=== PATIENT | female | born 1980 | race Caucasian/White ===

== ENCOUNTER 2016-09-11 17:59 | Emergency (ER) | payer BC | END 2016-09-11 18:17 | disposition left against medical advice (07) | LOC: CED 17:59 | DX: Z53.21 Procedure and treatment not carried out due to patient leaving prior to being seen by health care provider (principal) ==

== ENCOUNTER 2017-01-04 08:37 | Emergency (ER) | payer BC ==
[2017-01-04 08:52] VITALS: RESP 18; TEMP 98.4; O2SAT 97
[2017-01-04] MEDS ORDERED: diphenhydrAMINE 25 MG CAP PO ONE (09:28)
[2017-01-04] MEDS ORDERED: FAMOTIDINE 20 MG TAB PO ONE (09:28)
[2017-01-04] MEDS ORDERED: predniSONE 20 MG TAB PO ONE (09:28)
--- NOTE | 2017-01-04 09:36 | EDPHY ---
H & P HPI/ROS: CHIEF COMPLAINT: Rash HISTORY OF PRESENT ILLNESS: This 36-year-old female presents to the emergency department today with complaints of a rash on her arms, legs and trunk over the last 2 weeks. She has seen her primary care provider and they told her that it was stress related. They did not give her any medications. The rash has fluctuated but it has not gone away. She cannot think of any causative factors for the rash. She denies new detergents, body products, medications, or foods. No one else in the home has a similar rash. There has never been open lesions and the rash is not significantly pruritic. She has not had throat swelling, difficulty swallowing, difficulty breathing, dizziness, chest pain, or abdominal pain. She has not had a rash like this before. REVIEW OF SYSTEMS: Constitutional: No fever, no chills. Eyes: No discharge. ENT: No sore throat. Cardiovascular: No chest pain, no palpitations. Respiratory: No cough, no shortness of breath. Gastrointestinal: No abdominal pain, no vomiting. Genitourinary: No hematuria. Musculoskeletal: No back pain. Skin: See HPI. Neurological: No headache. Past Medical/Surgical History: PMH: Denied PSH: Denied FH: Anxiety, depression Social History: The patient states she smoked half pack of cigarettes per day. She has occasional alcohol. She denies marijuana use. Smoking Status: Current every day smoker Physical Exam: General Appearance: Alert, anxious. Eyes: Pupils equal and round no pallor or injection. ENT, Mouth: Mucous membranes are moist. No erythema, exudate, swelling. Uvula midline. Respiratory: There are no retractions, lungs are clear to auscultation. No rales, rhonchi or wheezing. Cardiovascular: Regular rate and rhythm. No murmurs, gallops or rubs. Gastrointestinal: Abdomen is soft and nontender, no masses, bowel sounds normal. Neurological: Awake and alert, sensory and motor exams grossly normal. Skin: Warm and dry. There is a diffuse, pale pink macular rash on her lower extremities, upper extremities, and posterior trunk. No vesicles, bullae, plaques, petechiae or nodules. No open wounds. No evidence of excoriations. The rash blanches in some areas but not in others. Musculoskeletal: Neck is supple nontender. Extremities are symmetrical, full range of motion. Psychiatric: Patient is oriented X 3, there is no agitation. DIFFERENTIAL DIAGNOSIS: After history and physical exam differential diagnosis was considered for allergic reaction, viral syndrome, dermatitis; no evidence of meningococcemia, vasculitis or erythema multiforme Constitutional: Initial Vital Signs Temperature (C) 98.4 F 01/04/17 08:49 Heart Rate 88 01/04/17 08:49 Respiratory Rate 18 01/04/17 08:49 Blood Pressure 116/64 01/04/17 08:49 O2 Sat (%) 97 01/04/17 08:49 O2 Delivery Mode Room Air Allergies/Adverse Reactions: amoxicillin [Amoxicillin] Allergy (Unknown, Verified 01/04/17 08:49) Penicillins Allergy (Verified 01/04/17 08:49) Home Medications: Medication Instructions Recorded Bcp 05/08/15 Famotidine [Pepcid] 20 mg PO DAILY #14 tablet 01/04/17 predniSONE [predniSONE TAPER] 10 mg PO .EDIT DOSE INSTRUCT 13 01/04/17 Days #37 ea Medical Decision Making ED Course/Re-evaluation: The patient was seen and examined. Vital signs were reviewed. She was given prednisone 60 mg orally as well as Benadryl 25 mg orally and Pepcid 20 mg orally in the emergency department. She was given a prescription for prednisone taper and Pepcid. She was advised to continue the Benadryl or Zyrtec. She should follow up with her primary care provider and/or Dermatology. Return to the emergency room sooner if symptoms worsen. - Data Points Medications Given: Discontinued Medications Diphenhydramine HCl (Benadryl) 25 mg PO EDNOW ONE Stop: 01/04/17 09:29 Last Admin: 01/04/17 09:38 Dose: 25 mg Famotidine (Pepcid) 20 mg PO EDNOW ONE Stop: 01/04/17 09:29 Last Admin: 01/04/17 09:38 Dose: 20 mg Prednisone (Prednisone) 60 mg PO EDNOW ONE Stop: 01/04/17 09:29 Last Admin: 01/04/17 09:37 Dose: 60 mg Departure - Departure Disposition: Home, Routine, Self-Care Clinical Impression: Rash Condition: Good Instructions: Acute Rash (ED) Additional Instructions: I don't know what is causing your rash. Follow up with a seasonal delivery driver. Keep a photo log of your rash to show to your providers. Take the Prednisone, Benadryl (or Zyrtec) and Pepcid as directed. Return to the ED if symptoms worsen as discussed. Referrals: CAMILO BLUNT [Other] - As per Instructions Tai Zapien MD [Medical Doctor] - 5-7 days, if not improved Prescriptions: Famotidine [Pepcid] 20 mg PO DAILY #14 tablet predniSONE [predniSONE TAPER] 10 mg PO .EDIT DOSE INSTRUCT 13 Days #37 ea
[2017-01-04 09:57] VITALS: BP 115/72; PULSE 79
== END 2017-01-04 09:48 | disposition home or self-care (01) ==
LOC: CED 08:37
DX: R21 Rash and other nonspecific skin eruption (principal); F17.200 Nicotine dependence, unspecified, uncomplicated